=== PATIENT | male | born 1950 | race Caucasian/White ===

== ENCOUNTER 2023-07-02 23:10 | Inpatient (IN) | payer OTHER, BC ==
[2023-07-02 23:25] VITALS: BMI 19.5
[2023-07-03 00:18] LABS: BASO % 0.4 % (0-2.0); EOS % 0.1 % (0-4.5); HEMOGLOBIN 11.3 GM/dL (11.7-16.9); LYMPH % 12.1 % (8-40); MCH 28.4 pg (25.7-33.7); MCHC 33.2 g/dl (32.0-35.9); MEAN CELL VOLUME 85.7 fl (80-96); MEAN PLT VOLUME 7.8 fl (7.5-11.1); MONO % 14.9 % (3.8-10.2); NEUT % 72.5 % (42.8-82.8); PLATELET COUNT 176 10^3/uL (134-434); RBC 3.96 M/mm3 (4.00-5.60); RDW 14.3 % (11.9-15.9); WHITE BLOOD COUNT 6.2 K/mm3 (4.0-10.0)
[2023-07-03 00:38] LABS: POTASSIUM 3.9 mmol/L (3.5-5.1)
[2023-07-03 00:40] LABS: ALBUMIN 3.6 g/dl (3.4-5.0); BLOOD UREA NITROGEN 15.7 mg/dL (7-18); CALCIUM 8.6 mg/dL (8.5-10.1); MAGNESIUM 2.3 mg/dL (1.8-2.4)
[2023-07-03 00:45] LABS: BILIRUBIN,TOTAL 0.6 mg/dL (0.2-1); PHOSPHOROUS 2.8 mg/dL (2.5-4.9); TOT PROT 7.1 g/dl (6.4-8.2)
[2023-07-03 01:42] LABS: INR 1.25 (0.83-1.09); PROTHROMBIN TIME (PATIENT) 14.5 SEC (9.7-13.0)
[2023-07-03 01:45] LABS: ACTIVATED PTT 28.5 SECONDS (25.2-36.5)
[2023-07-03] MEDS ORDERED: ASPIRIN 81 MG CHEWABLE TABLETS ONE ×2 (01:58→13:51)
[2023-07-03] MEDS: ASPIRIN 81 MG CHEWABLE TABLETS PO ONE (02:02)
[2023-07-03] MEDS ORDERED: HEPARIN NA (PORCINE) 5,000 UNITS/ML 1ML VIAL IVPUSH PRN ×2 (02:09)
[2023-07-03] MEDS: HEPARIN NA (PORCINE) 5,000 UNITS/ML 1ML VIAL IVPUSH ONE (03:01)
[2023-07-03] MEDS: HEPARIN INFUSION - 25,000 UNITS/500 ML INFUS.BAG IVPB SCH (03:01)
[2023-07-03 04:24] LABS: N-TERMINAL BNP 3498.3 pg/ml (5-125)
[2023-07-03 08:59] LABS: POTASSIUM 3.6 mmol/L (3.5-5.1)
[2023-07-03 09:06] LABS: CALCIUM 8.6 mg/dL (8.5-10.1)
[2023-07-03 09:08] LABS: ALBUMIN 3.6 g/dl (3.4-5.0); BLOOD UREA NITROGEN 13.3 mg/dL (7-18); CREATININE 0.9 mg/dL (0.55-1.3); MAGNESIUM 2.1 mg/dL (1.8-2.4)
[2023-07-03 09:11] LABS: TOT PROT 7.1 g/dl (6.4-8.2)
[2023-07-03 09:14] LABS: BILIRUBIN,TOTAL 0.5 mg/dL (0.2-1)
[2023-07-03] MEDS: INSULIN ASPART SLIDING SCALE (NOVOLOG) 1 VIAL SQ SCH (09:18)
[2023-07-03 09:32] LABS: HEMATOCRIT 33.8 % (35.4-49); HEMOGLOBIN 11.3 GM/dL (11.7-16.9); MCH 28.8 pg (25.7-33.7); MCHC 33.5 g/dl (32.0-35.9); MEAN CELL VOLUME 85.8 fl (80-96); MEAN PLT VOLUME 8.3 fl (7.5-11.1); PLATELET COUNT 184 10^3/uL (134-434); RBC 3.94 M/mm3 (4.00-5.60); RDW 14.3 % (11.9-15.9); WHITE BLOOD COUNT 6.3 K/mm3 (4.0-10.0)
[2023-07-03] MEDS: ASPIRIN 81 MG CHEWABLE TABLETS PO SCH (13:56)
[2023-07-03] MEDS ORDERED: ATORVASTATIN CA 80 MG TABLET (FP) ONE (23:20)
[2023-07-03] MEDS: ATORVASTATIN CA 80 MG TABLET (FP) PO SCH (23:21)
[2023-07-04 08:17] VITALS: TEMP 98.1
[2023-07-04] MEDS ORDERED: METOPROLOL TARTRATE 50 MG TABLET (FP) ONE (09:05)
[2023-07-04] MEDS ORDERED: ASPIRIN 81 MG CHEWABLE TABLETS ONE (09:06)
[2023-07-04] MEDS ORDERED: HEPARIN INFUSION - 25,000 UNITS/500 ML INFUS.BAG IVPB ONE (12:50)
[2023-07-04 13:00] VITALS: BP 161/76; PULSE 82; RESP 22
== END 2023-07-04 13:25 | disposition short-term general hospital (02) | DRG 282 ==
LOC: JER 23:10 → JERBED 07-03 03:00
PROVIDERS: ADMIT Internal Medicine; ATTEND Internal Medicine
DX: I21.4 Non-ST elevation (NSTEMI) myocardial infarction (principal); I25.10 Atherosclerotic heart disease of native coronary artery without angina pectoris; I10 Essential (primary) hypertension; E78.5 Hyperlipidemia, unspecified; R55 Syncope and collapse; I35.0 Nonrheumatic aortic (valve) stenosis; Z95.1 Presence of aortocoronary bypass graft; J11.1 Influenza due to unidentified influenza virus with other respiratory manifestations
CPT/HCPCS: 0241U-QW; 36415; 70450-TC; 71045-TC-FY; 80053; 80061; 82962; 83036; 83735; 83880; 84100; 84443; 84484; 85025; 85027; 85610; 85730; 87040; 93005; 93010; 93306-TC; 99285-25; J1644

== ENCOUNTER 2023-07-13 18:33 | Observation (INO) | payer OTHER, BC ==
[2023-07-13 18:47] VITALS: RESP 16; TEMP 98.2; BMI 25.8
[2023-07-13] MEDS ORDERED: ONDANSETRON 4 MG/2 ML VIAL ONE (20:15)
[2023-07-13] MEDS: ONDANSETRON 4 MG/2 ML VIAL IVPUSH ONE (20:40)
[2023-07-13 20:49] LABS: BASO % 0.4 % (0-2.0); EOS % 1.7 % (0-4.5); HEMATOCRIT 31.4 % (35.4-49); HEMOGLOBIN 10.4 GM/dL (11.7-16.9); LYMPH % 21.5 % (8-40); MCH 28.2 pg (25.7-33.7); MEAN CELL VOLUME 85.4 fl (80-96); MEAN PLT VOLUME 7.4 fl (7.5-11.1); MONO % 13.7 % (3.8-10.2); NEUT % 62.7 % (42.8-82.8); PLATELET COUNT 448 10^3/uL (134-434); RBC 3.68 M/mm3 (4.00-5.60); RDW 14.2 % (11.9-15.9); WHITE BLOOD COUNT 8.4 K/mm3 (4.0-10.0)
[2023-07-13 20:56] LABS: INR 1.24 (0.83-1.09); PROTHROMBIN TIME (PATIENT) 14.3 SEC (9.7-13.0)
[2023-07-13 21:13] LABS: POTASSIUM 5.1 mmol/L (3.5-5.1)
[2023-07-13 21:15] LABS: ALBUMIN 3.4 g/dl (3.4-5.0); BLOOD UREA NITROGEN 19.6 mg/dL (7-18); CALCIUM 8.9 mg/dL (8.5-10.1); MAGNESIUM 2.3 mg/dL (1.8-2.4)
[2023-07-13 21:20] LABS: BILIRUBIN,TOTAL 0.4 mg/dL (0.2-1); TOT PROT 7.3 g/dl (6.4-8.2)
[2023-07-13 21:23] LABS: N-TERMINAL BNP 1155.4 pg/ml (5-125)
[2023-07-13] MEDS ORDERED: guaiFENesin 200 MG/10 ML 10 ML UNIT-DOSE CUPS ONE (21:31)
[2023-07-13] MEDS: guaiFENesin 200 MG/10 ML 10 ML UNIT-DOSE CUPS PO ONE (21:32)
[2023-07-13 22:10] VITALS: BP 143/67; PULSE 64
[2023-07-13] MEDS ORDERED: ALBUTEROL SO4 2.5/IPRATROPIUM 0.5 INH SOL 3 ML VIAL.NEB. NEB ONE (23:08)
[2023-07-13] MEDS: ALBUTEROL SO4 2.5/IPRATROPIUM 0.5 INH SOL 3 ML VIAL.NEB. NEB ONE (23:14)
[2023-07-13 23:56] LABS: URINE APPEARANCE CLEAR; URINE BILIRUBIN NEGATIVE (NEGATIVE); URINE COLOR YELLOW; URINE GLUCOSE (UA) NEGATIVE (NEGATIVE); URINE KETONE NEGATIVE (NEGATIVE); URINE LEUK ESTERASE NEGATIVE (NEGATIVE); URINE NITRITE NEGATIVE (NEGATIVE); URINE PROTEIN NEGATIVE (NEGATIVE); URINE UROBILINOGEN 0.2 mg/dL (0.2-1.0)
== END 2023-07-14 01:28 | disposition left against medical advice (07) ==
LOC: JER 18:33 → JERBED 22:38
PROVIDERS: ADMIT Internal Medicine; ATTEND Internal Medicine
PROC: 3E0F7GC Introduction of Other Therapeutic Substance into Respiratory Tract, Via Natural or Artificial Opening (ICD-10-PCS; principal; 2023-07-13)
PROC: 3E033GC Introduction of Other Therapeutic Substance into Peripheral Vein, Percutaneous Approach (ICD-10-PCS; 2023-07-13)
DX: I25.10 Atherosclerotic heart disease of native coronary artery without angina pectoris (principal); I11.0 Hypertensive heart disease with heart failure; I50.9 Heart failure, unspecified; R53.1 Weakness; R05.9 Cough, unspecified; D64.9 Anemia, unspecified; I21.4 Non-ST elevation (NSTEMI) myocardial infarction; G93.39 Other post infection and related fatigue syndromes; Z29.89 Encounter for other specified prophylactic measures; I35.0 Nonrheumatic aortic (valve) stenosis; Z95.1 Presence of aortocoronary bypass graft; R01.1 Cardiac murmur, unspecified
CPT/HCPCS: 0241U-QW; 36415; 71046-TC-FY; 80053; 81003; 83605; 83735; 83880; 84484; 85025; 85610; 85730; 87040; 87086; 93005; 93010; 94640; 96374; 99285-25; G0378

== ENCOUNTER 2024-08-22 20:05 | Emergency (ER) | payer OTHER, BC ==
[2024-08-22 20:12] VITALS: BP 143/52; PULSE 77; RESP 18; TEMP 98; BMI 27.3
== END 2024-08-22 21:32 | disposition home or self-care (01) ==
LOC: JER 20:05
DX: S09.90XA Unspecified injury of head, initial encounter (principal); W52.XXXA Crushed, pushed or stepped on by crowd or human stampede, initial encounter; Y93.64 Activity, baseball; Y92.321 Football field as the place of occurrence of the external cause
CPT/HCPCS: 70450-TC; 99284-25